=== PATIENT | female | born 1990 | race American Indian/Alaskan Native ===

== ENCOUNTER 2021-06-02 22:31 | Emergency (ER) | payer SELFPAY ==
[2021-06-02] MEDS ORDERED: SODIUM CHLORIDE 0.9% 1000 ML 1,000 ML IV ONE (23:09)
[2021-06-02] MEDS ORDERED: ONDANSETRON 4 MG/2 ML INJ IV ONE (23:09)
[2021-06-02] MEDS ORDERED: MORPHINE 4 MG/1 ML INJ IV ONE (23:09)
--- NOTE | 2021-06-02 23:17 | Emergency Department Report ---
ED General Adult HPI - General Chief complaint: Wound/Laceration Stated complaint: BUTTOKS PAIN Source: EMS Mode of arrival: Stretcher Limitations: No Limitations - History of Present Illness Initial comments: 30 yo F with hx of recent [place] Butt lift on last tuesday here with abdominal pain. Patient reports she underwent surgery in [place] by a Dr. Jade. Her pain started today. She is unable to explain how the pain feels. She notes it is all over her abdomen. She has had no vomiting, no diarrhea, no fever. She denies buttock pain. She also notes she went for a massage of her abdomen, flank and buttocks on today. Pain started before the massage however. Severity scale (0 -10): 10 - Related Data Previous Rx's Medication Instructions Recorded Last Taken Type Polyethylene Glycol 3350 [Miralax] 1,102.688 gm PO QDAY #14 powder 06/03/21 Unknown Rx Allergies Allergy/AdvReac Type Severity Reaction Status Date / Time No Known Allergies Allergy Verified 06/02/21 22:40 ED Review of Systems ROS: Stated complaint: BUTTOKS PAIN Other details as noted in HPI Constitutional: denies: chills, fever Eyes: denies: eye discharge ENT: denies: ear pain, throat pain Respiratory: denies: cough, shortness of breath Cardiovascular: denies: chest pain Endocrine: no symptoms reported Gastrointestinal: abdominal pain. denies: nausea, vomiting, diarrhea Genitourinary: denies: urgency, dysuria Musculoskeletal: denies: back pain Skin: denies: rash Neurological: denies: headache, weakness Psychiatric: denies: anxiety, depression Hematological/Lymphatic: easy bruising ED Past Medical Hx - Past Medical History Previous Medical History?: No - Surgical History Additional Surgical History: CZECH BUTT LIFT - Medications Home Medications: Home Medications Medication Instructions Recorded Confirmed Last Taken Type Polyethylene Glycol 3350 [Miralax] 1,102.688 gm PO QDAY #14 powder 06/03/21 Unknown Rx ED Physical Exam - General Limitations: No Limitations General appearance: alert, in distress (2/2 pain) - Head Head exam: Present: atraumatic, normocephalic - Eye Eye exam: Present: normal appearance - ENT ENT exam: Present: mucous membranes moist - Neck Neck exam: Present: normal inspection - Respiratory Respiratory exam: Present: normal lung sounds bilaterally. Absent: respiratory distress - Cardiovascular Cardiovascular Exam: Present: tachycardia. Absent: systolic murmur, diastolic murmur, rubs, gallop - GI/Abdominal GI/Abdominal exam: Present: tenderness (diffuse). Absent: distended, guarding, rebound - Rectal Rectal exam: Present: deferred - Extremities Exam Extremities exam: Present: other (buttocks bruising) - Back Exam Back exam: Present: normal inspection - Neurological Exam Neurological exam: Present: alert, oriented X3 - Psychiatric Psychiatric exam: Present: normal affect - Skin Skin exam: Present: warm, dry, intact ED Course Vital Signs 06/02/21 22:40 Temperature 98.9 F Pulse Rate 107 H Respiratory 18 Rate Blood Pressure 139/86 [Left] O2 Sat by Pulse 98 Oximetry - Reevaluation(s) Reevaluation #1: 06/03/21 05:41 Imaging completed. Patient does have fluid and gas in the buttocks but patient does not have any severe tenderness in this area and does not complain of pain in this area. I think those findings are likely secondary to patient's recent surgery. Patient is instructed to follow-up with her doctor in [place] and primary care. She is also instructed that she should start taking her pain medicine. ED Medical Decision Making - Lab Data Result diagrams: 06/02/21 23:34 06/02/21 23:34 - Medical Decision Making 30 yo F here with abdominal pain after BBL on last Tuesday. Plan for labs, CT ab/pel, IV fluids, pain control. Will reevaluate after. DDX includes post operative issue. Critical care attestation.: If time is entered above; I have spent that time in minutes in the direct care of this critically ill patient, excluding procedure time. ED Disposition Clinical Impression: Post-op pain, Constipation Disposition: HOME / SELF CARE / HOMELESS Is pt being admited?: No Does the pt Need Aspirin: No Condition: Stable Instructions: Pain Relief Before and After Surgery Additional Instructions: Please call your surgeon and let him know that you were seen in the emergency department. Please attempt to schedule a closer follow-up appointment with him. Prescriptions: Polyethylene Glycol 3350 [Miralax] 1,102.688 gm PO QDAY #14 powder Referrals: LIANE SALAS MD [Primary Care Provider] - 3-5 Days PACO CALZADA MD [Staff Physician] - 3-5 Days Time of Disposition: 05:43
[2021-06-03 00:26] LABS: Alanine Aminotransferase 35 units/L (7-56); Albumin 3.7 g/dL (3.9-5); Blood Urea Nitrogen 6 mg/dL (7-17); Calcium 8.7 mg/dL (8.4-10.2); Hemolysis Index 9
[2021-06-03 00:28] LABS: BUN/Creatinine Ratio 10
[2021-06-03 00:42] LABS: Basophils % (Auto) 0.5 % (0.0-1.8); Eosinophils # (Auto) 0.1 K/mm3 (0.0-0.4); Eosinophils % (Auto) 1.6 % (0.0-4.3); Hematocrit 27.5 % (30.3-42.9); Lymphocytes # (Auto) 1.7 K/mm3 (1.2-5.4); Mean Corpuscular HGB Conc 33 % (30-34); Mean Corpuscular Volume 89 fl (79-97); Monocytes # (Auto) 0.8 K/mm3 (0.0-0.8); Monocytes % (Auto) 9.5 % (0.0-7.3); Platelet Count 407 K/mm3 (140-440); Red Blood Count 3.09 M/mm3 (3.65-5.03)
[2021-06-03 02:45] LABS: HCG Qualitative,Urine Negative (Negative)
[2021-06-03 02:53] LABS: Bacteria,Urine 4+ /HPF (Negative); Bilirubin,Urine NEG (Negative); Blood,Urine NEG (Negative); Color,Urine Yellow (Yellow); Mucus,Urine FEW /HPF; Protein,Urine <15 mg/dL mg/dL (Negative); Urobilinogen,Urine < 2.0 mg/dL (<2.0)
--- NOTE | 2021-06-03 04:20 | Cat Scan Report ---
CT abdomen pelvis w con INDICATION / CLINICAL INFORMATION: [place] Butt lift last Tuesday, now with diffuse pain. TECHNIQUE: Axial CT images were obtained through the abdomen and pelvis after IV contrast. All CT sc ans at this location are performed using CT dose reduction for ALARA by means of automated exposure c ontrol. COMPARISON: None available. FINDINGS: LOWER CHEST: Partially imaged bilateral breast implants are intact. Lung bases are clear. LIVER: No significant abnormality GALLBLADDER/BILIARY TREE: No significant abnormality PANCREAS: No significant abnormality SPLEEN: No significant abnormality ADRENALS: No significant abnormality KIDNEYS / URETER: No significant abnormality URINARY BLADDER: No significant abnormality REPRODUCTIVE ORGANS: Uterus/adnexa are appropriate for age. STOMACH / BOWEL: Moderate stool burden. No evidence of colitis. Small bowel is within normal limits. The appendix is normal. LYMPH NODES: No significant adenopathy. VASCULATURE: No significant abnormality. OTHER: Small foci of soft tissue gas within the right gluteus musculature with patchy areas of subcut aneous edema and gas involving both flanks. No organized collection. SKELETAL SYSTEM: No acute osseous findings. IMPRESSION: 1. Soft tissue fluid and gas within the subcutaneous tissues of the posterior flanks of the lower ba ck and within the right gluteus musculature. This may be postoperative in etiology, however cannot ex clude gas-forming soft tissue infection. No organized collection. Recommend clinical correlation. 2. Otherwise, no acute abnormality of the abdomen or pelvis. Signer Name: Juan Alex MD Signed: 06/03/2021 4:16 AM Workstation Name: [id number]
[2021-06-03] MEDS ORDERED: diphenhydrAMINE 25 MG CAP PO ONE (05:41)
[2021-06-03] MEDS ORDERED: oxyCODONE /ACETAMINOPHEN 5-325MG TAB PO ONE (05:41)
[2021-06-03 06:57] VITALS: BP 132/88
== END 2021-06-03 06:58 | disposition home or self-care (01) ==
LOC: ED 22:31
DX: G89.18 Other acute postprocedural pain (principal); K59.00 Constipation, unspecified
CPT/HCPCS: 36415; 74177; 80053; 81001; 81025; 83690; 85025; 96361; 96374; 96375; 99284; J2270; J2405; J7030; Q9967; Q0162